=== PATIENT | female | born 2000 | race Two or more races ===

== ENCOUNTER 2025-03-29 09:45 | Day surgery (SDC) | payer BC, OTHER ==
[~2025-03-29] VITALS: Ht 175.3 cm; Wt 133.0 kg
[~2025-03-29 09:45] MED LIST: Oxymetazoline 0.05% Nasal Relief Spray 15mL BTL ONE
[2025-03-29] MEDS ORDERED: Tranexamic Acid 100 ML IV ONE (09:57)
[2025-03-29] MEDS ORDERED: XYZAL5 MG (10:14)
[2025-03-29] MEDS ORDERED: DULO60 (10:14)
[2025-03-29] MEDS ORDERED: Midazolam HCl 1MG / ML 2ML Vial ONE (10:34)
[2025-03-29] MEDS ORDERED: Ondansetron HCl 2 MG / ML 2ML Vial ONE (10:39)
[2025-03-29] MEDS ORDERED: FentaNYL Citrate 50 MCG/ML 2 ML Injection ONE (10:39)
[2025-03-29] MEDS ORDERED: Dexamethasone Sod Phos 10 MG/ML 1ML VIAL ONE (10:39)
[2025-03-29] MEDS ORDERED: HYDROmorphone HCl/Pf 1MG SYR ONE (10:54)
[2025-03-29] MEDS ORDERED: Bupivacaine 0.5% HCl 5 MG/ML 30MLVIAL INJ ONE (10:55)
[2025-03-29 11:32] VITALS: BP 113/80
== END 2025-03-29 12:14 | disposition home or self-care (01) ==
LOC: ORSCSDS 09:45
PROVIDERS: Otolaryngology
PROC: 0CBPXZZ Excision of Tonsils, External Approach (ICD-10-PCS; principal; 2025-03-29 11:00)
DX: J35.1 Hypertrophy of tonsils (principal); G47.33 Obstructive sleep apnea (adult) (pediatric); E66.9 Obesity, unspecified; Z68.41 Body mass index [BMI] 40.0-44.9, adult
CPT/HCPCS: 88304; A9270; J1100; J1171; J2250; J2405; J2704; J3010; J7120